=== PATIENT | female | born 1970 | race Caucasian/White ===

== ENCOUNTER 2025-03-17 14:02 | Outpatient (CLI) | payer OTHER, SELFPAY ==
--- OUTSIDE RECORDS SUMMARY | 2025-03-10 14:18 | XMS_ITS ---
Author Organization [facility] Address [address] [place] [address] Care Team Providers Care Vegetable Farmworker Name Role Phone Sandy Banuelos NP Primary Care Provider Active Problems Problem Noted Date Diagnosed Date Hallux valgus of left foot 08/18/2021 Overview (08/18/2021): Added automatically from request for surgery [id number] Acquired claw toe of left foot 08/18/2021 Overview (08/18/2021): Added automatically from request for surgery [id number] History of breast cancer 10/02/2017 Breast lump 02/10/2016 Corneal scar and opacity 04/14/2015 Corneal scar 03/05/2015 Epiphora 09/01/2014 Encounter for routine gynecological examination 07/01/2013 FH: SAMMY-BSO (total abdominal hysterectomy and bilateral salpingo-oophorectomy) 10/29/2012 Endometriosis 10/17/2012 S/P cholecystectomy 08/10/2012 Corneal abrasion 08/12/2011 Family history of breast cancer 06/22/2009 Malignant neoplasm of female breast 06/17/2009 Overview (12/12/2017): Overview: 06/17/09 Stage I ( T1c N0 Mx) IDC RIGHT breast ER 92% [place] 95% HER2/russell - Ki67 14% BRCA 1/2 NEGATIVE 0:2LNs grade 1 2 lesions 2cm and 0.6cm BRCA 1/2 NEGATIVE ONCOTYPE 6% (Recurrence Score 7) Radiation with Dorman 09/07/09 09/07/09 TMX 10/29/12 SAMMY/BSO Last Assessment & Plan: 4 years out On TMX 4 years PREmeno mammo in December Had TAHBSO - plan 5yr tmx then AI Current Treatment and Therapy Plans No current plan information found. Past Treatment and Therapy Plans No past plan information found. Lifetime Dose Tracking * Chemical Lifetime Dose Automatic Entry Manual Entr y Fluoro Time 1 minutes 1 minutes 0 minutes Air kerma at the reference point (Ka,r) 13.5 mGy 1 3.5 mGy 0 mGy DLP 171 mGycm 171 mGycm 0 mGycm
--- OUTSIDE RECORDS SUMMARY | 2025-03-10 14:18 | XMS_ITS | Clinical Summary ---
Author Organization [facility] Address [address] [place] [address] Care Team Providers Care Pmp Certified Project Manager Name Role Phone Sandy Banuelos NP Primary Care Provider [phone] Allergies No known active allergies Medications ascorbic acid (VITAMIN C) 1,000 mg tablet Take 1,000 mg by mouth every morning Active cyanocobalamin (Vitamin B-12) 500 mcg tabletIndications :Prevention of Vitamin B12 Deficiency Take 500 mcg by mouth every morning Active diclofenac DR (VOLTAREN) 25 mg EC tablet Take 25 mg by mouth as needed Active magnesium oxide (MAG-OX) 250 mg (150.8 mg elemental) tabletIndications :hypomagnesemia Take 250 mg by mouth every morning Active omega-3 fatty acids-fish oil 300-1,000 mg capsule Take by mouth every morning Active anastrozole (ARIMIDEX) 1 mg tabletIndications :Hormone Receptor Positive Breast Cancer Take 1 mg by mouth 1 Active escitalopram (LEXAPRO) 10 mg tabletIndications :Anxiety with Depression Take 10 mg by mouth every morning 1 Active cholecalciferol (VITAMIN D-3) 2000 unit capsule Take 2,000 Units by mouth every morning Active cetirizine-pseudo ephedrine ER (ZyrTEC-D) 5-120 mg per 12 hr tabletIndications :Nasal Congestion Take 1 tablet by mouth every morning Active mv-min/iron/folic /calcium/vitK (WOMEN'S MULTIVITAMIN ORAL) Take by mouth every morning Active senna (SENOKOT) 8.6 mg tablet Take 1 tablet by mouth daily 30 tablet 2 Active ketorolac (TORADOL) 10 mg tablet Take 1 tablet (10 mg total) by mouth every 6 (six) hours as needed for pain 16 tablet 2 Active aspirin 325 mg enteric coated tablet Take 1 tablet (325 mg total) by mouth daily 30 tablet 2 Active polyethylene glycol 236-22.74-6.74 -5.86 gram solution 2 Active azithromycin (ZITHROMAX) 250 mg tablet 2 Active Active Problems Problem Noted Date Diagnosed Date Hallux valgus of left foot 08/18/2021 Overview (08/18/2021): Added automatically from request for surgery [id number] Acquired claw toe of left foot 08/18/2021 Overview (08/18/2021): Added automatically from request for surgery [id number] History of breast cancer 10/02/2017 Breast lump [...] N0 Mx) IDC RIGHT breast ER 92% [place] 95% HER2/russell - Ki67 14% BRCA 1/2 NEGATIVE 0:2LNs grade 1 2 lesions 2cm and 0.6cm BRCA 1/2 NEGATIVE ONCOTYPE 6% (Recurrence Score 7) Radiation with Dorman 09/07/09 09/07/09 TMX 10/29/12 SAMMY/BSO Last Assessment & Plan: 4 years out On TMX 4 years PREmeno mammo in December Had TAHBSO - plan 5yr tmx then AI Surgical History Surgery Date Site/Laterality Comments [place] TOTAL ABDOMINAL HYSTERECT W/WO RMVL TUBE OVARY 07/03/2011 - 07/02/2012 Hysterectomy - (Added by TW Conv) HYSTERECTOMY [place] CHOLECYSTECTOMY Cholecystectomy - (Added by TW Conv) [place] EXC CYST/ABERRANT BREAST TISSUE OPEN 1/> LESION Right Breast Surgery Lumpectomy - (Added by TW Conv) BREAST LUMPECTOMY Right MASTECTOMY 08/31/2020 - 09/30/2020 Bilateral bilateral mastectomy and reconstruction OVARY SURGERY cyst removal when 10 APPENDECTOMY when 10 yrs old Medical History Medical History Date Comments Personal history of malignan t neoplasm of breast History of malignant neoplas m of breast - (Added by TW Conv) Cancer (HCC) Scoliosis S/P radiation therapy 2010 R breast C A Family History Medical History Relation Name Comments Gout Father Skin cancer Maternal Grandfather Family history of skin cancer - (Added by TW Conv) Diabetes Maternal Grandmother Family history of diabetes mellitus - (Added by [place] Conv) Heart disease Maternal Grandmother Family history of cardiac disorder - (Added by [place] Conv) Lung cancer Maternal Grandmother Family history of lung cancer - (Added by [place] Conv) Diabetes Maternal Great-Grandmother F amily history of diabetes mellitus - (Added by TW Conv) Anesthesia problems Mother Diabetes Mother Family history of diabetes mellitus - (Added by TW Conv) PONV Mother Diabetes Other Family history of diabetes mellitus - Relation: Aunt (Added by [place] Conv) Relation Name Status Comments Father Maternal Grandfather Maternal Grandmother Maternal Great-Grandmother Mother Other Social History Tobacco Use Types Packs/Day Years Used Date Smoking Tobacco: Never Smokeless Tobacco: Never Alcohol Use Standard Drinks/Week Comments Yes 0 (1 standard drink = 0.6 oz pur e alcohol) Social AUDIT-C Answer Date Recorded Q1: How often do you have a drink containing alc ohol? Monthly or less 08/26/2021 Q2: How many drinks containi ng alcohol do you have on a typical day when you are drinking? 1 or 2 08/26/2021 Q3: How often do you have si x or more drinks on one occasion? Never 08/26/2021 Comments No Sex and Gender Information Value Date Recorded Sex Assigned at Not on file Legal Sex Female 5:17 AM SOAKING PITS SUPERVISOR Gender Identity Not on file Sexual Orientation Not on file Obstetrics History Last Filed Vital Signs Vital Sign Reading Time Taken Comments Blood Pressure 110/76 09/06/2021 3:40 PM SOAKING PITS SUPERVISOR Pulse 80 09/06/2021 3:40 PM SOAKING PITS SUPERVISOR Temperature 36.9 C (98.42 F) 09/06/2021 11:05 AM SOAKING PITS SUPERVISOR Respiratory Rate 16 09/06/2021 3:40 PM SOAKING PITS SUPERVISOR Oxygen Saturation 92% 09/06/2021 3:40 PM SOAKING PITS SUPERVISOR Inhaled Oxygen Concentration - - Weight 94.8 kg (209 lb) 01/18/2022 10:58 AM CDT Height 160 cm (5' 3) 01/18/2022 10:58 AM CDT Body Mass Index 37.02 01/18/2022 10:58 AM CDT Plan of Treatment Health Maintenance Due Date Last Done Comments Breast Cancer Screening-Mammogram 1968 Colon Cancer Screening-Colonoscopy 1968 Depression Screening 1968 Hepatitis C Screening 1968 DTaP/Tdap/Td Vaccine (1 - Tdap) 12/30/1979 Hepatitis B Screening 1986 Regular Well Visit/Exam 18-64 1986 Pneumococcal vaccine <65 (1 of 2 - PCV) 12/30/1987 Zoster Vaccine (1 of 2) 12/30/1987 Influenza Vaccine (#1) 2025 Medical Devices Implanted Type Area Blood Bank Technician Device Identifier Shelf Expiration Date Model / Serial / Lot [employer] Medical Ref [id number] Implanted:Qty: 1 on 09/06/2021 by Gabriele Cordova MD at [facility] Screw Left: Foot [employer] [id number] 07/23/2028 [id number] / / [id number] Description:PROSTEP RAEANN SCR EW 4 X 52MM IMPLANT PAUSE PERFORMED Shore Medical Ref [id number] Prostep Raeann Screw 3 X 26mm Implanted:Qty: 1 on 09/06/2021 by Gabriele Cordova MD at [facility] Screw Left: Foot [employer] [id number] 03/12/2029 [id number] / / [id number] Description:IMPLANT PAUSE PE RFORMED [employer] Ref [id number] Prostep Raeann Screw 3mm X 40mm Implanted:Qty: 1 on 09/06/2021 by Gabriele Cordova MD at [facility] Left: Foot [employer]de[employer] [id number] 08/11/2028 [id number] / / [id number] Description:IMPLANT PAUSE PE RFORMED [employer] Instruments [id number] Kaitlynn .054in 9in Smooth Trocar Point One End Orthopedic Wire - [id number] Implanted:Qty: 1 on 09/06/2021 by Gabriele Cordova MD at [facility] Left: Foot [employer] [id number] 10/28/2024 [id number] / / [id number] Synthes 2.6 X 12mm Cortex Screw Ref [id number] Implanted:Qty: 2 on 09/06/2021 by Gabriele Cordova MD at [facility] Left: Second Toe Synthes I [id number] / / Description:[phone] KV Insurance [facility] CHOICE PLUS [facility] CHOICE PLUS Member Subscriber Plan / Payer (Ef fective 2017-Present) Name:MelonyElise Relation to Subscriber:Self Name:VISHNU SALOMONYA Payer ID:[id number] (NAIC) Type:[facility] HMO/PPO Address: [place] [id number] [facility] CHOICE PLUS Member Subscriber Plan / Payer (Ef fective 2022-Present) Name:AbbeElise aviles Relation to Subscriber:Spouse Name:GINANICOSaraPATRICIA Date of :1969 (Home) Address: [address] [place] [address] Payer ID:[id number] (NAIC) Type:[facility] HMO/PPO Address: [place] [id number] Care Teams Pmp Certified Project Manager Relationship Specialty Start Date End Date Sandy Banuelos NP [address] [place] [id number] PCP - General Nurse Practitioner 03/25/24
--- OUTSIDE RECORDS SUMMARY | 2025-03-10 14:18 | XMS_ITS | Encounter Summary ---
Author Organization [facility] Address [address] [place] [address] Care Team Providers Care Continuous Process Coffee Roaster Name Role Phone Salvador Myers MD Primary Care Provider [phone] Encounter Details Date Type Department Care Team (Late st Contact Info) Description 09/27/2018 Lab Requisition [facility] Care DermPath Lab [address] [facility] [place] [address] Roopa Espana DO [address] [facility] [address] [place] [address] Social History Tobacco Use Types Packs/Day Years Used Date Smoking Tobacco: Never Assessed Comments Unknown Sex and Gender Information Value Date Recorded Sex Assigned at Not on file Legal Sex Female 4:14 PM CDT Gender Identity Not on file Sexual Orientation Not on file documented as of this encounter Plan of Treatment Not on file documented as of this encounter Procedures Procedure Name Priority Date/Time Associated Diagnosis Comments DERMATOPATHOLOGY Routine 09/26/2018 12:0 0 AM CDT documented in this encounter Results * DERMATOPATHOLOGY (09/26/2018 12:00 AM CDT) Case Report Dermatopathology Report Case: [id number] Authorizing Provider: Roopa Espana DO Collected: 09/26/2018 12:00 AM Pathologist: Jacqueline Larson MD Received: 09/27/2018 11:09 AM Specimens: A) - Skin, mid FH B) - Skin, right FH 12:53 PM CDT DERMATOPATHOLOGY LABORATORY Final Diagnosis Specimen A. SKIN, mid FH: SEBACEOUS HYPERPLASIA, SUPERFICIAL PORTIONS OF (L73.8) (see microscopic description) Specimen B. SKIN, right FH: SQUAMOUS CELL CARCINOMA IN SITU (D04.39) 9 12:53 PM CDT DERMATOPATHOLOGY LABORATORY at 1253 CDT Clinical History A-B: R/O NMSC. 12:53 PM T DERMATOPATHOLOGY LABORATORY Gross Description Specimen A: Received is one formalin filled container labeled with the patient's name and designated mid FH. The specimen consists of a shave measuring [id number]. Jar 0. Specimen B: Received is one formalin filled container labeled with the patient's name and designated right FH. The specimen consists of a shave measuring [id number]. Jar 0. 12:53 PM CDT DERMATOPATHOLOGY LABORATORY Microscopic Description Specimen A. SKIN, mid FH: There is the surface of prominent sebaceous gland lobules surrounding a dilated hair follicle. Additional deeper sections were obtained and reviewed. Specimen B. SKIN, right FH: There is acanthosis of the epidermis. There is maturation arrest and nuclear pleomorphism of the keratinocytes throughout the entire thickness of the epidermis. The adnexal epithelium is focally preserved. 12:53 PM T DERMATOPATHOLOGY LABORATORY Disclaimer An external and internal positive and negative controls are appropriate for the histochemical, immunohistochemical and immunofluorescence stain(s) in this case (if any), except where stated explicitly. The performance characteristics of the stain(s) cited in this report were developed and its performance characteristic determined by the Dermatopathology Laboratory at [facility], directed by Dr. Elizabeth Che. These tests need not be, and therefore are not, approved by the [place] Food and Drug Administration. The tests are used for clinical purposes. Billing Codes Specimen Charges Stain Charges 69681 23502 1 1 12:53 PM CDT DERMATOPATHOLOGY LABORATORY Embedded Images 12:53 PM CDT DERMATOPATHOLOGY LABORATORY Pathology/Cytology TISSUE SPECIMEN FROM SKIN / Unknown 09/26/2018 09/27/2018 11:09 AM CDT Miscellaneous samples (specimen) TISSUE SPECIMEN FROM SKIN / Unknown 09/26/2018 09/27/2018 11:09 AM CDT us Roopa Espana DO LAB - PATHOLOGY/CYTOLOGY ORDERABLES Final Result DERMATOPATHOLOGY LABORATORY [facility] - Department of Dermatology [address] [facility], 5th Floor Lab [address] [phone] documented in this encounter Visit Diagnoses Not on filedocumented in this encounter Care Teams Continuous Process Coffee Roaster Relationship Specialty Start Date End Date Salvador Myers MD [address] [place] [address] PCP - General 09/26/18 documented as of this encounter
--- OUTSIDE RECORDS SUMMARY | 2025-03-10 14:18 | XMS_ITS | Clinical Summary ---
Author Organization [facility] Address [address] [facility] [address] Care Team Providers Care Scrap Wheeler Name Role Phone Salvador Myers MD Primary Care Provider [phone] Source Comments [facility] [employer]non-owned Affiliates and Associated Physician Practices is amultiple site organization consisting of ambulatory clinics and hospital sitesin [place], [place], [place] and [place]. This disclosure is being madepursuant to the Care Everywhere program and may not contain all information available regarding this patient. Last updated 18.[facility] [employer] Social History Tobacco Use Types Packs/Day Years Used Date Smoking Tobacco: Never Assessed Comments Unknown Sex and Gender Information Value Date Recorded Sex Assigned at Not on file Legal Sex Female 4:14 PM CDT Gender Identity Not on file Sexual Orientation Not on file Plan of Treatment Health Maintenance Due Date Last Done Comments COLOGUARD (AGES 45-75) - COL ON CA SCREENING 1968 COLON MONITORING 1968 COLONOSCOPY - COLON CA SCREENING 1968 CT COLONOGRAPHY - COLON CA SCREENING 1968 Colorectal Cancer Screening 1968 FIT - COLON CA SCREENING 1968 FLEX SIG - COLON CA SCREENING 1968 LIPID TESTING 1968 MAMMOGRAM 1968 HIV SCREENING 12/30/1983 HEPATITIS C SCREENING 12/25/1986 DTAP/TDAP/TD VACCINES (1 - Tdap) 12/30/1987 HEPATITIS B VACCINE (1 of 3 - 19+ 3-dose series) 12/30/1987 PNEUMOCOCCAL VACCINE 50+ (1 of 1 - PCV) 2018 ZOSTER VACCINE (1 of 2) 2018 DEPRESSION SCREENING 07/03/2024 COVID-19 VACCINE ( - 2023-2 5 season) 2025 INFLUENZA VACCINE (#1) 2025 HIB VACCINE Aged Out No longer eligi ble based on patient's age to complete this topic HPV VACCINE Aged Out No longer eligi ble based on patient's age to complete this topic MENINGOCOCCAL (Group B) VACC INE SHARED DECISION-MAKING Aged Out No longer eligibl e based on patient's age to complete this topic MENINGOCOCCAL GROUPS A/C/Y/W VACCINE Aged Out No longer eligible b ased on patient's age to complete this topic Insurance [facility] Care Teams Scrap Wheeler Relationship Specialty Start Date End Date Salvador Myers MD [address] [place] [address] [facility] - General 09/26/18
--- NOTE | ~2025-03-17 | NM_ITS ---
EXAMINATION: NM thyroid scan w uptake DATE: 03/18/2025 14:40 INDICATION: Thyrotoxicosis. COMPARISON: None. TECHNIQUE: 0.350 mCi I-[id number] was administered orally. Scintigraphic images of the thyroid gland were obtained at 24 hours. Thyroid uptake was calculated by the technologist. FINDINGS: The thyroid uptake is 49% (normal 10-30%), with the right lobe measuring 16% uptake and the left 33%. There is greatest activity in the superior left thyroid lobe. IMPRESSION: 1. Increased 24-hour iodine uptake, consistent with Graves disease. Reviewed, dictated and finalized at location E.
--- OUTSIDE RECORDS SUMMARY | 2025-03-17 16:56 | XMS_ITS ---
Author Organization [facility] Address [address] [place] [address] Care Team Providers Care Car Repairer Apprentice Name Role Phone Sandy Banuelos NP Primary Care Provider Active Problems Problem Noted Date Diagnosed Date Hallux valgus of left foot 08/18/2021 Overview (08/18/2021): Added automatically from request for surgery [id number] Acquired claw toe of left foot 08/18/2021 Overview (08/18/2021): Added automatically from request for surgery [id number] History of breast cancer 10/02/2017 Breast lump [...] N0 Mx) IDC RIGHT breast ER 92% [place] 95% HER2/russell - Ki67 14% BRCA 1/2 [...]
--- OUTSIDE RECORDS SUMMARY | 2025-03-17 16:56 | XMS_ITS | Clinical Summary ---
Author Organization [facility] Address [address] [place] [address] Care Team Providers Care Coat Hanger Shaper Machine Operator Name Role Phone Sandy Banuelos NP Primary Care Provider Allergies No known active allergies Medications ascorbic [...] (08/18/2021): Added automatically from request for surgery [id number] Acquired claw toe of left foot 08/18/2021 Overview (08/18/2021): Added automatically from request for surgery [id number] History of breast cancer 10/02/2017 Breast lump [...] history of diabetes mellitus - (Added by [place] Conv) Heart disease Maternal Grandmother Family history of cardiac disorder - (Added by [place] Conv) Lung cancer Maternal Grandmother Family history of lung cancer - (Added by [place] Conv) Diabetes Maternal Great-Grandmother F amily history of diabetes mellitus - (Added by TW Conv) Anesthesia problems Mother Diabetes Mother Family history of diabetes mellitus - (Added by TW Conv) PONV Mother Diabetes Other Family history of diabetes mellitus - Relation: Aunt (Added by [place] Conv) Relation Name Status Comments Father Maternal [...] on file Legal Sex Female 5:17 AM INTERPERSONAL COMMUNICATIONS PROFESSOR Gender Identity Not on file Sexual Orientation Not on file Obstetrics History Last Filed Vital Signs Vital Sign Reading Time Taken Comments Blood Pressure 110/76 09/06/2021 3:40 PM INTERPERSONAL COMMUNICATIONS PROFESSOR Pulse 80 09/06/2021 3:40 PM INTERPERSONAL COMMUNICATIONS PROFESSOR Temperature 36.9 C (98.42 F) 09/06/2021 11:05 AM INTERPERSONAL COMMUNICATIONS PROFESSOR Respiratory Rate 16 09/06/2021 3:40 PM INTERPERSONAL COMMUNICATIONS PROFESSOR Oxygen Saturation 92% 09/06/2021 3:40 PM INTERPERSONAL COMMUNICATIONS PROFESSOR Inhaled Oxygen Concentration - - Weight 94.8 [...] (#1) 2025 Medical Devices Implanted Type Area Guidance Adviser Device Identifier Shelf Expiration Date Model / Serial / Lot AFrame Digital Medical Ref [id number] Implanted:Qty: 1 on 09/06/2021 by Gabriele Cordova MD at [facility] Screw Left: Foot [employer] [id number] 07/23/2028 [id number] / / [id number] Description:PROSTEP REAANN SCR EW 4 X 52MM IMPLANT PAUSE PERFORMED [employer] Ref [id number] Prostep Raeann Screw 3 X 26mm Implanted:Qty: 1 on 09/06/2021 by Gabriele Cordova MD at [facility] Screw Left: Foot [employer] [id number] 03/12/2029 [id number] / / [id number] Description:IMPLANT PAUSE PE RFORMED [employer] Ref [id number] Prostep Raeann Screw 3mm X 40mm Implanted:Qty: 1 on 09/06/2021 by Gabriele Cordova MD at [facility] Left: Foot [employer] [id number] 08/11/2028 [id number] / / [id number] Description:IMPLANT PAUSE PE RFORMED [employer] [id number] Kaitlynn .054in 9in Smooth Trocar Point One End Orthopedic Wire - [id number] Implanted:Qty: 1 on 09/06/2021 by Gabriele Cordova MD at [facility] Left: Foot [employer] [id number] 10/28/2024 [id number] / / [id number] Synthes 2.6 X 12mm Cortex Screw Ref [id number] Implanted:Qty: 2 on 09/06/2021 by Gabriele Cordova MD at [facility] Left: Second Toe Synthes I [id number] / / Description:[phone] KV Insurance [facility] CHOICE PLUS [facility] CHO[facility] PLUS Member Subscriber Plan / Payer (Ef fective 2017-Present) Name:MelonyElise Relation to Subscriber:Self Name:VISHNU SALOMONYA Payer ID:[id number] (NAIC) Type:[facility] HMO/PPO Address: [place] [id number] [facility] CHOICE PLUS Member Subscriber Plan / Payer (Ef fective 2022-Present) Name:AbbeElise aviles Relation to Subscriber:Spouse Name:GINANICOSaraPATRICIA Date of :1969 (Home) Address: [address] [place] [address] Payer ID:[id number] (NAIC) Type:[facility] HMO/PPO Address: [place] [id number] Care Teams Coat Hanger Shaper Machine Operator Relationship Specialty Start Date End Date Sandy Banuelos NP [address] [place] [id number] PCP - General Nurse Practitioner 03/25/24
--- OUTSIDE RECORDS SUMMARY | 2025-03-17 16:56 | XMS_ITS | Clinical Summary ---
Author Organization [facility] Address [address] [facility] [place] [address] Care Team Providers Care Electrician Substation Supervisor Name Role Phone Salvador Myers MD Primary Care Provider [phone] Source Comments [facility] [employer],non-owned Affiliates and Associated Physician Practices is amultiple site organization consisting of ambulatory clinics and hospital sitesin [place], [place], [place] and [place]. This disclosure is being madepursuant to the Care Everywhere program and may not contain all information available regarding this patient. Last updated 18.[facility] [employer] Social History Tobacco Use Types Packs/Day Years [...] patient's age to complete this topic Insurance [facility] Care Teams Electrician Substation Supervisor Relationship Specialty Start Date End Date Salvador Myers MD [address] [place] [address] [facility] - General 09/26/18
--- OUTSIDE RECORDS SUMMARY | 2025-03-17 16:56 | XMS_ITS | Encounter Summary ---
Author Organization [facility] Address [address] [place] [address] Care Team Providers Care Clerical Secretary Name Role Phone Salvador Myers MD Primary Care Provider [phone] Encounter Details Date Type Department Care Team (Late st Contact Info) Description 09/27/2018 Lab Requisition [facility] Care D[facility] Lab [address] [facility] [place] [id number] Roopa Espana DO [address] [facility] [address] DEPT [place] [address] Social History Tobacco Use Types Packs/Day Years [...] AM CDT) Case Report Dermatopathology Report Case: [id number] Authorizing Provider: Roopa Espana DO Collected: 09/26/2018 12:00 AM Pathologist: Jacqueline Larson MD Received: 09/27/2018 11:09 AM Specimens: A) - Skin, mid FH B) - Skin, right FH 9 12:53 PM CDT DERMATOPATHOLOGY LABORATORY Final Diagnosis [...] The specimen consists of a shave measuring [id number]. Jar 0. Specimen B: Received is one formalin filled container labeled with the patient's name and designated right FH. The specimen consists of a shave measuring [id number]. Jar 0. 12:53 PM CDT DERMATOPATHOLOGY LABORATORY [...] characteristic determined by the Dermatopathology Laboratory at [facility], directed by Dr. Elizabeth Che. These tests need not be, and therefore are not, approved by the [place] Food and Drug Administration. The tests are used for clinical purposes. Billing Codes Specimen Charges Stain Charges 06365 95112 1 1 12:53 PM CDT DERMATOPATHOLOGY LABORATORY Embedded Images 12:53 PM CDT DERMATOPATHOLOGY LABORATORY Pathology/Cytology TISSUE SPECIMEN FROM SKIN / Unknown 09/26/2018 09/27/2018 11:09 AM CDT Miscellaneous samples (specimen) TISSUE SPECIMEN FROM SKIN / Unknown 09/26/2018 09/27/2018 11:09 AM CDT us Roopa Espana DO LAB - PATHOLOGY/CYTOLOGY ORDERABLES Final Result DERMATOPATHOLOGY LABORATORY [facility] - Department of Dermatology [address] [facility] 5th Floor Lab [address] [phone] documented in this encounter Visit Diagnoses Not on filedocumented in this encounter Care Teams Clerical Secretary Relationship Specialty Start Date End Date Salvador Myers MD [address] [place] [address] PCP - General 09/26/18 documented as of this encounter
--- OUTSIDE RECORDS SUMMARY | 2025-03-17 16:56 | XMS_ITS | Encounter Summary ---
Author Organization [facility] Address [facility] [place] [address] Care Team Providers Care Animal Control Specialist Name Role Phone Can Baptiste MD Primary Care Provider [phone] Reason for Visit * Reason Comments Back Pain Encounter Details Date Type Department Care Team (Late st Contact Info) Description 02/09/2018 Hosp Visit [facility] [place] [address] [place] [address] Na Rich, [place] [address] Back Pain Social History Tobacco Use Types Packs/Day Years Used Date Smoking Tobacco: Never Assessed Comments Unknown Sex and Gender Information Value Date Recorded Sex Assigned at Not on file Legal Sex Female 4:40 PM CDT Gender Identity Not on file Sexual Orientation Not on file documented as of this encounter Plan of Treatment Not on file documented as of this encounter Visit Diagnoses Not on filedocumented in this encounter Care Teams Animal Control Specialist Relationship Specialty Start Date End Date Can Baptiste MD PCP - General 10/19/11 documented as of this encounter
--- OUTSIDE RECORDS SUMMARY | 2025-03-17 16:56 | XMS_ITS | Encounter Summary ---
Author Organization [facility] Address [facility] [place] [address] Care Team Providers Care Lineman Name Role Phone Can Baptiste MD Primary Care Provider [phone] Encounter Details Date Type Department Care Team (Late st Contact Info) Description 02/21/[address] [facility] [place] [address] Mary King, [place] [address] Social History Tobacco Use Types Packs/Day Years [...] on filedocumented in this encounter Care Teams Lineman Relationship Specialty Start Date End Date Can Baptiste MD PCP - General 10/19/11 documented as of this encounter
--- OUTSIDE RECORDS SUMMARY | 2025-03-17 16:56 | XMS_ITS | Clinical Summary ---
Author Organization [facility] Address [address] [place] [address] Care Team Providers Care Proposal Manager Writer Name Role Phone Can Batpiste MD Primary Care Provider [phone] Active Problems Patient Care Coordination No te Formatting of this note migh t be different from the original. PT precautions: Breast Ca(last treatment 2009), denies others. No known active problems Social History Tobacco Use Types Packs/Day Years Used Date Smoking Tobacco: Never Assessed Comments Unknown Sex and Gender Information Value Date Recorded Sex Assigned at Not on file Legal Sex Female 4:40 PM CDT Gender Identity Not on file Sexual Orientation Not on file Last Filed Vital Signs Vital Sign Reading Time Taken Comments Blood Pressure 124/66 04/03/2017 2:56 PM CDT Pulse 95 08/20/2013 10:19 AM RISK DEVELOPER Temperature - - Respiratory Rate - - Oxygen Saturation - - Inhaled Oxygen Concentration - - Weight 86.2 kg (190 lb) 04/03/2017 2:56 PM CDT Height 160 cm (5' 3) 04/03/2017 2:56 PM CDT Body Mass Index 33.66 04/03/2017 2:56 PM CDT Plan of Treatment Health Maintenance Due Date Last Done Comments Cervical Cancer Screening Pa p Smear (Age 30 to 64) Every 3 Years 1968 Colorectal Cancer Screening Colonoscopy (10 Years) 1968 Annual Physical 12/30/1971 Hepatitis C 1986 DTaP, Tdap and Td Vaccines ( 1 - Tdap) 12/30/1987 Hepatitis B Vaccines (1 of 3 - 19+ 3-dose series) 12/30/1987 Cervical Cancer Screening Pa p with HPV Testing (Age 30 to 64) Every 5 Years 1998 Cervical Cancer Screening with HPV 1998 Mammogram Screening 2008 Pneumococcal Vaccine: 50+ Ye ars (1 of 1 - PCV) 2018 Zoster Vaccines (1 of 2) 2018 COVID-19 Vaccine (1 - 2023-2 5 season) 2025 Meningococcal B Vaccine Aged Out No l onger eligible based on patient's age to complete this topic Meningococcal Vaccine Aged Out No anaid alicia eligible based on patient's age to complete this topic RSV Immunizations Under 20 Months Aged Out No longer eligible based on patient's age to complete this topic Insurance [facility] Care Teams Proposal Manager Writer Relationship Specialty Start Date End Date Can Baptiste MD PCP - General 10/19/11
--- OUTSIDE RECORDS SUMMARY | 2025-03-17 16:56 | XMS_ITS | Encounter Summary ---
Author Organization [facility] Address [facility] [place] [address] Care Team Providers Care Stenciling Machine Tender Name Role Phone Can Baptiste MD Primary Care Provider [phone] Encounter Details Date Type Department Care Team (Late st Contact Info) Description 01/19/[address] [facility] CONVERSION [address] [place] [address] , Generic ConversionMD Social History Tobacco Use Types Packs/Day Years [...] on filedocumented in this encounter Care Teams Stenciling Machine Tender Relationship Specialty Start Date End Date Can Baptiste MD PCP - General 10/19/11 documented as of this encounter
--- OUTSIDE RECORDS SUMMARY | 2025-03-17 16:56 | XMS_ITS | Encounter Summary ---
Author Organization [facility] Address [facility] [place] [address] Care Team Providers Care National Investigative Producer Name Role Phone Can Baptiste MD Primary Care Provider [phone] Encounter Details Date Type Department Care Team (Late st Contact Info) Description 02/26/2018 Hosp Visit [facility] Outpatient [place] [address] [place] [address] Italia Duong, [place] [address] Social History Tobacco Use Types Packs/Day Years [...] on filedocumented in this encounter Care Teams National Investigative Producer Relationship Specialty Start Date End Date Can Baptiste MD PCP - General 10/19/11 documented as of this encounter
== END 2025-03-17 14:03 | disposition home or self-care (01) ==
PROVIDERS: PCP Nurse Practitioner Family; Visit Provider Internal Medicine Endocrinology, Diabetes & Metabolism
DX: E05.90 Thyrotoxicosis, unspecified without thyrotoxic crisis or storm (principal)
CPT/HCPCS: 78014; A9516